=== PATIENT | male | born 1965 | race Caucasian/White ===

== ENCOUNTER 2022-01-09 15:19 | Emergency (ER) | payer MEDICARE, BC | END 2022-01-09 18:00 | disposition home or self-care (01) | LOC: LL.ED 15:19 | DX: S69.82XA Other specified injuries of left wrist, hand and finger(s), initial encounter (principal); W18.41XA Slipping, tripping and stumbling without falling due to stepping on object, initial encounter | CPT/HCPCS: 73110-LT; 99283-25; 99284 ==